=== PATIENT | female | born 1975 | race Caucasian/White ===

== ENCOUNTER 2018-06-30 11:01 | Emergency (ER) | payer BC ==
[2018-06-30 11:44] LABS: Bilirubin Negative (Negative); Blood, Urine Negative (Negative); Clarity CLEAR (Clear); Glucose, Urine (Dipstick) Negative (Negative); Leukocyte Negative (Negative); Nitrite Negative (Negative); Protein, Urine (Dipstick) Negative (Neg-Trace); Urobilinogen 0.2 mg/dL (0.2-1.0)
[2018-06-30 11:46] LABS: Pregnancy Test - Urine (BHCG) Negative (Negative); Pregu Control Background? CLEAR/WHITE (CLR/WHITE); Pregu Control Bar Appear? YES (CONTROL BAR)
[2018-06-30] MEDS ORDERED: Ondansetron HCl/PF 4 MG/2 ML Vial ONE (11:51)
[2018-06-30 11:58] LABS: #Basophils 0.1 thou/uL (0.0-0.2); #Eosinphils 0.1 thou/uL (0.0-0.7); #Lymphocytes 2.2 thou/uL (1.20-3.40); #Monocytes 0.4 thou/uL (0.11-0.59); #Neutrophils 4.3 thou/uL (1.40-6.50); %Basophils 1.1 % (0.0-1.0); %Lymphocytes 30.4 % (21.0-51.0); %Monocytes 5.8 % (0.0-10.0); %Neutrophils 60.7 % (42.0-75.0); Hemoglobin 13.2 g/dL (12.0-16.0); Mean Corpuscular HGB CONC 33.7 g/dL (32.0-36.0); Mean Corpuscular Hemoglobin 32.8 pg (27.0-31.0); Mean Corpuscular Volume 97.3 fL (78.0-98.0); Mean Platelet Volume 8.2 fL (7.4-10.4); Platelet Count 267 thou/uL (130-400); RBC Distribution Width 11.9 % (11.5-14.5); Red Blood Cell (RBC) Count 4.03 mill/uL (4.20-5.40); White Blood Cell (WBC) Count 7.1 thou/uL (4.8-10.8)
[2018-06-30 12:23] LABS: ALT (SGPT) 11 U/L (8-55); AST (SGOT) 13 U/L (5-34); Albumin 4.6 g/dL (3.5-5.0); Alkaline Phosphatase 52 U/L (40-150); Anion Gap 10 mmol/L (10-20); BUN (Urea Nitrogen) 10 mg/dL (7.0-18.7); Bilirubin, Total 0.3 mg/dL (0.2-1.2); Calc. Creatinine Clearance 0 mL/min (70-130); Calcium 9.3 mg/dL (7.8-10.44); Carbon Dioxide 22 mmol/L (22-29); Chloride 108 mmol/L (98-107); Estimated GFR-MDRD 75; Globulin 2.6 g/dL (2.4-3.5); Glucose 92 mg/dL (70-105); Lipase 17 U/L (8-78); Potassium 3.9 mmol/L (3.5-5.1); Protein, Total 7.2 g/dL (6.0-8.3); Sodium 136 mmol/L (136-145)
--- NOTE | 2018-06-30 14:43 | CT ---
CT ABDOMEN AND PELVIS WITH IV CONTRAST: Date: 06-30-18 History: Right lower quadrant abdominal pain since Wednesday. History of celiac disease, endometriosis. Comparison: None available. FINDINGS: There is minimal dependent bibasilar atelectasis. The osseous structures are intact. The liver, spleen, pancreas, bilateral adrenal glands, kidneys, urinary bladder and abdominal aorta d emonstrate a normal CT appearance. Opacified small bowel is normal in caliber. There is no bowel wall thickening involving the distal sm all bowel or terminal ileum. The appendix is not visualized, but there are no secondary signs to sugg est appendicitis. There is a heterogeneous mass like structure seen within the right aspect of the uterus which is in t he region of the body and fundus of the uterus measuring 2.9 cm AP x 1.9 cm transverse which may repr esent a uterine fibroid. There is a low density structure seen within the left ovary measuring 2.1 cm, probably related to a s mall ovarian cyst. There is a subcentimeter low density structure within the right adnexal region wit h associated rim of enhancement which may represent involuting follicle or cyst. Small amount of free fluid is seen in the cul-de-sac which may be physiologic in origin. No lymphadenopathy or fluid collection is seen in the abdomen or pelvis. IMPRESSION: 1. Findings likely attributable to a uterine fibroid with small left ovarian cyst and involuting foll icle/cyst right ovary. However, ultrasound examination may be helpful for further evaluation. 2. Small amount of free fluid in the pelvis which is probably physiologic in origin. 3. No CT evidence of appendicitis. In addition, there is no wall thickening involving the distal or t erminal ileum. POS: [facility]
[2018-06-30] MEDS ORDERED: ISOVUE-370 76%-LOCM 1 ML ONE (14:51)
== END 2018-06-30 14:36 | disposition home or self-care (01) ==
LOC: ERS 11:01
DX: D25.9 Leiomyoma of uterus, unspecified (principal); N83.201 Unspecified ovarian cyst, right side; N83.202 Unspecified ovarian cyst, left side; E03.9 Hypothyroidism, unspecified; F41.9 Anxiety disorder, unspecified; Z79.84 Long term (current) use of oral hypoglycemic drugs; Z79.899 Other long term (current) drug therapy
CPT/HCPCS: 74177; 80053; 81003; 81025; 83690; 85025; 96374; J2405